=== PATIENT | female | born 1975 | race Caucasian/White ===

== ENCOUNTER 2018-04-13 11:23 | Outpatient (CLI) | payer OTHER ==
[~2018-04-13 11:23] MED LIST: BUPR150T6 PO; CITA-278 PO; ESZO2TAB22 PO; HYDR-569 PO; IBUP-1986 PO; LUBI24CA5 PO; METH-360 PO; NITR100C6 PO; ONDA8TAB9 PO
[2018-04-16 12:13] LABS: HBSAG SCREEN Negative (Negative); HEP A AB, IGM Negative (Negative); HEP B CORE AB, IGM Negative (Negative); HEPATITIS C ANTIBODY >11.0 s/co ratio (0.0-0.9); RPR Non Reactive (Non Reactive)
== END 2018-04-13 23:59 | disposition home or self-care (01) ==
LOC: LAB 11:23
PROVIDERS: ATTEND Family Medicine
DX: Z20.2 Contact with and (suspected) exposure to infections with a predominantly sexual mode of transmission (principal); F17.200 Nicotine dependence, unspecified, uncomplicated; Z98.51 Tubal ligation status
CPT/HCPCS: 36415; 80074; 86592; 87491

== ENCOUNTER 2018-08-09 13:34 | Emergency (ER) | payer OTHER ==
[~2018-08-09] VITALS: Ht 167.6 cm; Wt 64.2 kg
[~2018-08-09 13:34] MED LIST changes: +HYDR-4383 PO; -HYDR-569 PO
[2018-08-09 13:57] VITALS: BP 127/73
[2018-08-09] MEDS ORDERED: ketorolac tromethamine 15mg/ml inj. IM ONE (14:20)
== END 2018-08-09 15:45 | disposition home or self-care (01) ==
LOC: ER 13:34
DX: M54.5 Low back pain (principal); Z90.49 Acquired absence of other specified parts of digestive tract; Z98.51 Tubal ligation status; Z88.2 Allergy status to sulfonamides; Z88.5 Allergy status to narcotic agent; Z79.899 Other long term (current) drug therapy
CPT/HCPCS: 72100; 96372; 99284; J1885

== ENCOUNTER 2019-06-16 13:32 | Outpatient (CLI) | payer OTHER ==
[~2019-06-16 13:32] MED LIST changes: -CITA-278 PO; +CITA20TA28 PO
== END 2019-06-16 23:59 | disposition home or self-care (01) ==
LOC: CARD DIAG 13:32
PROVIDERS: ATTEND Student in an Organized Health Care Education/Training Program
DX: I31.3 Pericardial effusion (noninflammatory) (principal); I34.0 Nonrheumatic mitral (valve) insufficiency; R00.1 Bradycardia, unspecified; Z87.891 Personal history of nicotine dependence
CPT/HCPCS: 93306

== ENCOUNTER 2019-10-15 13:44 | Emergency (ER) | payer OTHER ==
[~2019-10-15] VITALS: Ht 166.4 cm; Wt 59.0 kg
[2019-10-15 14:24] VITALS: BP 130/48
== END 2019-10-15 15:17 | disposition home or self-care (01) ==
LOC: ER 13:45
DX: S20.212A Contusion of left front wall of thorax, initial encounter (principal); F41.9 Anxiety disorder, unspecified; F32.9 Major depressive disorder, single episode, unspecified; Z90.49 Acquired absence of other specified parts of digestive tract; Z98.51 Tubal ligation status; Z88.5 Allergy status to narcotic agent; Z79.899 Other long term (current) drug therapy; W18.39XA Other fall on same level, initial encounter; Y93.89 Activity, other specified; Y92.89 Other specified places as the place of occurrence of the external cause; Y99.8 Other external cause status
CPT/HCPCS: 71101; 99284

== ENCOUNTER 2020-12-18 09:08 | Emergency (ER) | payer BC, OTHER ==
[~2020-12-18] VITALS: Ht 167.6 cm; Wt 58.2 kg
[~2020-12-18 09:08] MED LIST changes: +BUPR-317 PO; -BUPR150T6 PO
[2020-12-18 09:19] VITALS: BP 109/52
[2020-12-18] MEDS ORDERED: proparacaine 0.5% ophthalmic drops 15ml RIGHTEYE ONE (09:35)
[2020-12-18] MEDS ORDERED: OFLO5DRO3 RIGHTEYE (10:05)
== END 2020-12-18 10:27 | disposition home or self-care (01) ==
LOC: EEVIPCON 09:08 → ER 09:08
DX: S05.01XA Injury of conjunctiva and corneal abrasion without foreign body, right eye, initial encounter (principal); Z88.5 Allergy status to narcotic agent; Z79.899 Other long term (current) drug therapy; X58.XXXA Exposure to other specified factors, initial encounter; Y93.89 Activity, other specified; Y92.89 Other specified places as the place of occurrence of the external cause; Y99.8 Other external cause status
CPT/HCPCS: 99283

== ENCOUNTER 2020-12-27 16:40 | Emergency (ER) | payer BC ==
[~2020-12-27] VITALS: Ht 165.1 cm; Wt 59.1 kg
[~2020-12-27 16:40] MED LIST changes: +OFLO5DRO3 RIGHTEYE
[2020-12-27 17:22] LABS: BASOPHILS # (AUTO) 0.1 X10'3 (0-0.2); BASOPHILS % (AUTO) 1.4 % (0-1); EOSINOPHILS % (AUTO) 0.2 % (0-6); HEMATOCRIT 45.4 % (35.0-45.0); HEMOGLOBIN 15.4 g/dl (12.0-16.0); LYMPHOCYTES % (AUTO) 23.1 % (21-51); MEAN CORPUSCULAR HEMOGLOBIN 32.9 PG (27.0-31.0); MEAN CORPUSCULAR HGB CONC 33.8 g/dL (33.0-36.5); MEAN CORPUSCULAR VOLUME 97.2 FL (78-98); MEAN PLATELET VOLUME 9.8 FL (7.4-10.4); MONOCYTES # (AUTO) 0.7 X10'3 (0-0.9); MONOCYTES % (AUTO) 8.2 % (2-12); NEUTROPHILS # (AUTO) 5.7 X10'3 (1.8-7.7); NEUTROPHILS % (AUTO) 67.1 % (42-75); PLATELET COUNT 245 X10'3 (140-440); RED BLOOD COUNT 4.67 X10'6 (4.20-5.60); RED CELL DISTRIBUTION WIDTH 13.2 % (11.5-14.5); WHITE BLOOD COUNT 8.6 X10'3 (4.5-11.0)
[2020-12-27 17:31] LABS: ALANINE AMINOTRANSFERASE 24 U/L (12-78); ALBUMIN 4.3 G/DL (3.4-5.0); ALBUMIN/GLOBULIN RATIO 1.1 (1.1-1.5); ALKALINE PHOSPHATASE 51 IU/L (46-116); ANION GAP 8 (8-16); ASPARTATE AMINO TRANSFERASE 26 U/L (10-37); BILIRUBIN,TOTAL 0.6 MG/DL (0.1-1.0); BLOOD UREA NITROGEN 12 MG/DL (7-18); CALCIUM 9.8 MG/DL (8.5-10.1); CHLORIDE 100 MMOL/L (99-107); CREATININE 0.86 MG/DL (0.40-0.90); GLUCOSE 95 MG/DL (70-104); POTASSIUM 3.5 MMOL/L (3.5-5.1); SODIUM 138 MMOL/L (135-145); TOTAL CARBON DIOXIDE 30.4 MMOL/L (24-32); TOTAL PROTEIN 8.2 G/DL (6.4-8.2); eGFR 72 ML/MIN
[2020-12-27] MEDS ORDERED: normal saline 1000ML IV soln IVB ONE (18:35)
[2020-12-27 18:49] LABS: CLARITY,URINE CLEAR (Clear); COLOR,URINE STRAW (Yellow); GLUCOSE, URINE NEGATIVE (Neg); KETONES,URINE NEGATIVE (Neg); LEUKOCYTE ESTERASE ,URINE NEGATIVE (Neg); NITRITES, URINE NEGATIVE (Neg); OCCULT BLOOD,URINE NEGATIVE (Neg); PH,URINE 6.5 (4.8-8.0); PROTEIN,URINE NEGATIVE (Neg); UA COLLECTION TYPE CLN CATCH MIDSTREAM; UROBILINOGEN,URINE 0.2 E.U/dL (0.2-1.0)
[2020-12-27 18:50] LABS: URINE HCG NEGATIVE (NEG)
[2020-12-27 20:42] VITALS: BP 120/79
== END 2020-12-27 20:46 | disposition home or self-care (01) ==
LOC: ER 16:41
DX: R42 Dizziness and giddiness (principal); R55 Syncope and collapse; R06.02 Shortness of breath; E86.0 Dehydration; F41.9 Anxiety disorder, unspecified; F32.9 Major depressive disorder, single episode, unspecified; Z90.49 Acquired absence of other specified parts of digestive tract; Z98.51 Tubal ligation status; Z79.2 Long term (current) use of antibiotics; Z79.899 Other long term (current) drug therapy
CPT/HCPCS: 36415; 71045; 80053; 81003; 81025; 83880; 84484; 85025; 93005; 96360; 96361; 99285; J7030

== ENCOUNTER 2021-02-16 17:17 | Emergency (ER) | payer BC ==
[~2021-02-16] VITALS: Ht 165.1 cm; Wt 60.1 kg
[2021-02-16] MEDS ORDERED: LORazepam 0.5 MG tablet PO PRN (19:05)
[2021-02-16] MEDS ORDERED: normal saline 1000ML IV soln IVB ONE ×2 (19:05→20:35)
[2021-02-16 19:09] LABS: BASOPHILS # (AUTO) 0.1 X10'3 (0-0.2); BASOPHILS % (AUTO) 1.5 % (0-1); EOSINOPHILS % (AUTO) 0.1 % (0-6); HEMATOCRIT 42.1 % (35.0-45.0); HEMOGLOBIN 14.5 g/dl (12.0-16.0); LYMPHOCYTES # (AUTO) 1.1 X10'3 (1.1-4.8); LYMPHOCYTES % (AUTO) 13.9 % (21-51); MEAN CORPUSCULAR HEMOGLOBIN 32.7 PG (27.0-31.0); MEAN CORPUSCULAR HGB CONC 34.5 g/dL (33.0-36.5); MEAN CORPUSCULAR VOLUME 94.8 FL (78-98); MEAN PLATELET VOLUME 9.6 FL (7.4-10.4); MONOCYTES % (AUTO) 12.1 % (2-12); NEUTROPHILS # (AUTO) 5.9 X10'3 (1.8-7.7); NEUTROPHILS % (AUTO) 72.4 % (42-75); PLATELET COUNT 229 X10'3 (140-440); RED BLOOD COUNT 4.44 X10'6 (4.20-5.60); RED CELL DISTRIBUTION WIDTH 12.8 % (11.5-14.5); WHITE BLOOD COUNT 8.1 X10'3 (4.5-11.0)
[2021-02-16 19:18] LABS: PARTIAL THROMBOPLASTIN TIME 26 SECONDS (22-32)
[2021-02-16 19:20] LABS: ALANINE AMINOTRANSFERASE 55 U/L (12-78); ALBUMIN 3.8 G/DL (3.4-5.0); ALBUMIN/GLOBULIN RATIO 1.1 (1.1-1.5); ALKALINE PHOSPHATASE 40 IU/L (46-116); ANION GAP 9 (8-16); ASPARTATE AMINO TRANSFERASE 62 U/L (10-37); BILIRUBIN,TOTAL 0.7 MG/DL (0.1-1.0); BLOOD UREA NITROGEN 8 MG/DL (7-18); BUN/CREATININE RATIO 9.9 (6.6-38.0); CALCIUM 8.7 MG/DL (8.5-10.1); CHLORIDE 98 MMOL/L (99-107); CREATININE 0.81 MG/DL (0.40-0.90); GLUCOSE 150 MG/DL (70-104); POTASSIUM 3.4 MMOL/L (3.5-5.1); SODIUM 134 MMOL/L (135-145); TOTAL CARBON DIOXIDE 26.9 MMOL/L (24-32); TOTAL PROTEIN 7.3 G/DL (6.4-8.2); eGFR 77 ML/MIN
[2021-02-16 19:28] LABS: LIPASE 166 U/L (73-393); TROPONIN I < 0.04 NG/ML (0.0-0.05)
--- NOTE | 2021-02-16 20:06 | NUR ---
PT AMBULATORY TO BATHROOM WITH STEADY GAIT.
[2021-02-16 21:54] VITALS: BP 111/60
== END 2021-02-16 22:39 | disposition home or self-care (01) ==
LOC: EEVIPCON 17:18 → ER 17:18
DX: R42 Dizziness and giddiness (principal); E86.0 Dehydration; R06.02 Shortness of breath; R07.89 Other chest pain; F41.9 Anxiety disorder, unspecified; F32.9 Major depressive disorder, single episode, unspecified; F17.200 Nicotine dependence, unspecified, uncomplicated; Z90.49 Acquired absence of other specified parts of digestive tract; Z98.51 Tubal ligation status; Z79.2 Long term (current) use of antibiotics; Z79.899 Other long term (current) drug therapy
CPT/HCPCS: 36415; 71045; 80053; 83690; 83880; 84484; 85025; 85610; 85730; 93005; 96360; 96361; 99285; J7030

== ENCOUNTER → 2021-02-26 | Emergency (ER) | payer BC, OTHER ==
[~2021-02-26] VITALS: Ht 167.6 cm; Wt 56.0 kg
[2021-02-26 19:02] VITALS: BP 135/78
== END | disposition home or self-care (01) ==
LOC: ER 18:58
DX: M25.512 Pain in left shoulder (principal); M25.552 Pain in left hip; M54.2 Cervicalgia; F41.9 Anxiety disorder, unspecified; F32.9 Major depressive disorder, single episode, unspecified; Z90.49 Acquired absence of other specified parts of digestive tract; Z98.51 Tubal ligation status; Z79.2 Long term (current) use of antibiotics; Z79.899 Other long term (current) drug therapy; W01.0XXA Fall on same level from slipping, tripping and stumbling without subsequent striking against object, initial encounter; Y93.89 Activity, other specified; Y92.89 Other specified places as the place of occurrence of the external cause; Y99.8 Other external cause status
CPT/HCPCS: 72050; 73030; 73502; 99284

== ENCOUNTER 2021-04-09 12:50 | Outpatient (CLI) | payer BC | END 2021-04-09 23:59 | disposition home or self-care (01) | LOC: LAB 12:50 | PROVIDERS: ATTEND Family Medicine | DX: Z86.19 Personal history of other infectious and parasitic diseases (principal) | CPT/HCPCS: 36415; 82103 ==

== ENCOUNTER 2021-05-30 14:01 | Emergency (ER) | payer BC, OTHER ==
[~2021-05-30] VITALS: Ht 170.2 cm; Wt 61.4 kg
[2021-05-30] MEDS ORDERED: HYDROcodone/acetaminophen 5mg/325mg tablet PO ONE (16:50)
[2021-05-30] MEDS ORDERED: ondansetron 4mg rapidly disintigrating tab PO ONE (16:50)
[2021-05-30] MEDS ORDERED: dexamethasone 4mg tablet PO ONE (17:20)
[2021-05-30 18:44] VITALS: BP 106/48
[2021-05-30 19:21] LABS: BASOPHILS # (AUTO) 0.1 X10'3 (0-0.2); BASOPHILS % (AUTO) 1.2 % (0-1); EOSINOPHILS # (AUTO) 0.6 X10'3 (0-0.9); EOSINOPHILS % (AUTO) 5.3 % (0-6); HEMATOCRIT 44.1 % (35.0-45.0); HEMOGLOBIN 15.3 g/dl (12.0-16.0); LYMPHOCYTES # (AUTO) 1.3 X10'3 (1.1-4.8); LYMPHOCYTES % (AUTO) 12.3 % (21-51); MEAN CORPUSCULAR HEMOGLOBIN 33.3 PG (27.0-31.0); MEAN CORPUSCULAR HGB CONC 34.6 g/dL (33.0-36.5); MEAN CORPUSCULAR VOLUME 96.3 FL (78-98); MEAN PLATELET VOLUME 9.5 FL (7.4-10.4); MONOCYTES # (AUTO) 0.9 X10'3 (0-0.9); MONOCYTES % (AUTO) 8.5 % (2-12); NEUTROPHILS # (AUTO) 7.7 X10'3 (1.8-7.7); NEUTROPHILS % (AUTO) 72.7 % (42-75); PLATELET COUNT 256 X10'3 (140-440); RED BLOOD COUNT 4.58 X10'6 (4.20-5.60); RED CELL DISTRIBUTION WIDTH 12.8 % (11.5-14.5); WHITE BLOOD COUNT 10.5 X10'3 (4.5-11.0)
[2021-05-30 19:35] LABS: ALANINE AMINOTRANSFERASE 25 U/L (12-78); ALBUMIN 3.7 G/DL (3.4-5.0); ALBUMIN/GLOBULIN RATIO 0.9 (1.1-1.5); ALKALINE PHOSPHATASE 54 IU/L (46-116); ANION GAP 8 (8-16); ASPARTATE AMINO TRANSFERASE 23 U/L (10-37); BILIRUBIN,TOTAL 0.7 MG/DL (0.1-1.0); BLOOD UREA NITROGEN 6 MG/DL (7-18); BUN/CREATININE RATIO 7.2 (6.6-38.0); CALCIUM 8.7 MG/DL (8.5-10.1); CHLORIDE 105 MMOL/L (99-107); CREATININE 0.83 MG/DL (0.40-0.90); GLUCOSE 137 MG/DL (70-104); POTASSIUM 3.9 MMOL/L (3.5-5.1); SODIUM 141 MMOL/L (135-145); TOTAL CARBON DIOXIDE 28.3 MMOL/L (24-32); TOTAL PROTEIN 7.8 G/DL (6.4-8.2); eGFR 75 ML/MIN
[2021-05-30] MEDS ORDERED: LORazepam 2 mg/ml vial IV ONE (19:35)
[2021-05-30] MEDS ORDERED: NORepinephrine inj. 32 MG in normal saline 250ml IV soln 218 ML IV SCH (19:40)
[2021-05-30] MEDS ORDERED: NORepinephrine 8mg/ 250ml NS 250 ML IV SCH (19:40)
[2021-05-30] MEDS ORDERED: ondansetron/PF 4mg/2ml inj IV ONE (23:35)
[2021-05-30] MEDS ORDERED: HYDROcodone/acetaminophen 10/325mg tab PO ONE (23:35)
== END 2021-05-31 06:32 | disposition short-term general hospital (02) ==
LOC: ER 14:03
DX: T14.8XXA Other injury of unspecified body region, initial encounter (principal); Z20.822 Contact with and (suspected) exposure to COVID-19; W18.39XA Other fall on same level, initial encounter; Y93.89 Activity, other specified; Y92.89 Other specified places as the place of occurrence of the external cause; Y99.8 Other external cause status
CPT/HCPCS: 36415; 36556; 70450; 70486; 72125; 72141; 72146; 72148; 80053; 85025; 87635; 96365; 96375; 99291; C9803; J2060; J2405

== ENCOUNTER 2021-07-18 11:47 | Emergency (ER) | payer BC ==
[~2021-07-18] VITALS: Ht 167.6 cm; Wt 60.9 kg
[2021-07-18 12:33] VITALS: BP 100/53
[2021-07-18 13:09] LABS: MONOCYTES # (AUTO) 0.6 X10'3 (0-0.9)
[2021-07-18 13:18] LABS: PARTIAL THROMBOPLASTIN TIME 27 SECONDS (22-32)
[2021-07-18 13:20] LABS: ALBUMIN 3.8 G/DL (3.4-5.0); ALBUMIN/GLOBULIN RATIO 1.1 (1.1-1.5); ALKALINE PHOSPHATASE 39 IU/L (46-116); ANION GAP 6 (8-16); ASPARTATE AMINO TRANSFERASE 18 U/L (10-37); BILIRUBIN,TOTAL 0.6 MG/DL (0.1-1.0); BLOOD UREA NITROGEN 7 MG/DL (7-18); BUN/CREATININE RATIO 9.5 (6.6-38.0); CALCIUM 9.2 MG/DL (8.5-10.1); CHLORIDE 104 MMOL/L (99-107); CREATININE 0.74 MG/DL (0.40-0.90); GLUCOSE 93 MG/DL (70-104); POTASSIUM 3.9 MMOL/L (3.5-5.1); SODIUM 138 MMOL/L (135-145); TOTAL PROTEIN 7.4 G/DL (6.4-8.2); eGFR 85 ML/MIN
[2021-07-18 13:30] LABS: NEUTROPHILS # (AUTO) 2.3 X10'3 (1.8-7.7); WHITE BLOOD COUNT 5.9 X10'3 (4.5-11.0)
[2021-07-18 13:32] LABS: BASOPHILS % (AUTO) 0.3 % (0-1); EOSINOPHILS # (AUTO) 0.7 X10'3 (0-0.9); EOSINOPHILS % (AUTO) 12.6 % (0-6); HEMATOCRIT 41.3 % (35.0-45.0); LYMPHOCYTES # (AUTO) 2.2 X10'3 (1.1-4.8); LYMPHOCYTES % (AUTO) 37.1 % (21-51); MEAN CORPUSCULAR HEMOGLOBIN 32.7 PG (27.0-31.0); MEAN CORPUSCULAR HGB CONC 33.8 g/dL (33.0-36.5); MEAN CORPUSCULAR VOLUME 96.7 FL (78-98); MEAN PLATELET VOLUME 10.6 FL (7.4-10.4); PLATELET COUNT 229 X10'3 (140-440); RED BLOOD COUNT 4.27 X10'6 (4.20-5.60); RED CELL DISTRIBUTION WIDTH 12.2 % (11.5-14.5)
[2021-07-18 13:36] LABS: ALANINE AMINOTRANSFERASE < 6 U/L (12-78)
== END 2021-07-18 14:31 | disposition home or self-care (01) ==
LOC: ER 11:47
DX: R21 Rash and other nonspecific skin eruption (principal); Z90.49 Acquired absence of other specified parts of digestive tract; Z98.51 Tubal ligation status; Z79.899 Other long term (current) drug therapy
CPT/HCPCS: 80053; 85025; 85610; 85730; 99283

== ENCOUNTER 2022-06-12 09:30 | Outpatient (CLI) | payer BC ==
[2022-06-12 10:13] LABS: BASOPHILS % (AUTO) 0.3 % (0-1); EOSINOPHILS # (AUTO) 0.2 X10'3 (0-0.9); EOSINOPHILS % (AUTO) 2.8 % (0-6); HEMATOCRIT 45.5 % (35.0-45.0); HEMOGLOBIN 15.5 g/dl (12.0-16.0); LYMPHOCYTES # (AUTO) 1.7 X10'3 (1.1-4.8); LYMPHOCYTES % (AUTO) 30.3 % (21-51); MEAN CORPUSCULAR HEMOGLOBIN 33.8 PG (27.0-31.0); MEAN CORPUSCULAR HGB CONC 34.1 g/dL (33.0-36.5); MEAN PLATELET VOLUME 9.3 FL (7.4-10.4); MONOCYTES # (AUTO) 0.9 X10'3 (0-0.9); MONOCYTES % (AUTO) 15.8 % (2-12); NEUTROPHILS # (AUTO) 2.9 X10'3 (1.8-7.7); NEUTROPHILS % (AUTO) 50.8 % (42-75); PLATELET COUNT 226 X10'3 (140-440); RED BLOOD COUNT 4.59 X10'6 (4.20-5.60); RED CELL DISTRIBUTION WIDTH 13.6 % (11.5-14.5); WHITE BLOOD COUNT 5.7 X10'3 (4.5-11.0)
[2022-06-12 10:37] LABS: ALANINE AMINOTRANSFERASE 50 U/L (12-78); ALBUMIN 3.6 G/DL (3.4-5.0); ALBUMIN/GLOBULIN RATIO 0.9 (1.1-1.5); ALKALINE PHOSPHATASE 70 IU/L (46-116); ANION GAP 10 (8-16); ASPARTATE AMINO TRANSFERASE 50 U/L (10-37); BILIRUBIN,TOTAL 0.6 MG/DL (0.1-1.0); BLOOD UREA NITROGEN 9 MG/DL (7-18); BUN/CREATININE RATIO 9.9 (6.6-38.0); CALCIUM 9.5 MG/DL (8.5-10.1); CHLORIDE 98 MMOL/L (99-107); CREATININE 0.91 MG/DL (0.40-0.90); GLUCOSE 125 MG/DL (70-104); POTASSIUM 3.9 MMOL/L (3.5-5.1); SODIUM 138 MMOL/L (135-145); TOTAL CARBON DIOXIDE 29.6 MMOL/L (24-32); TOTAL PROTEIN 7.5 G/DL (6.4-8.2); eGFR 67 ML/MIN
[2022-06-13 09:45] LABS: ESTRADIOL 35.8 pg/mL (.); FSH, SERUM 75.4 mIU/mL (.); LUTEINIZING HORMONE 60.6 mIU/mL (.); PROGESTERONE 0.2 ng/mL (.); THYROXINE (T4) 5.3 ug/dL (4.5-12.0)
== END 2022-06-12 23:59 | disposition home or self-care (01) ==
LOC: LAB 09:30
PROVIDERS: ATTEND Physician Assistant Medical
DX: Z30.018 Encounter for initial prescription of other contraceptives (principal); N91.2 Amenorrhea, unspecified
CPT/HCPCS: 80053; 82306; 82670; 82679; 83001; 83002; 84144; 84436; 84443; 84480; 85025

== ENCOUNTER 2022-06-15 10:27 | Outpatient (CLI) | payer BC ==
[2022-06-16 13:12] LABS: HEPATITIS C ANTIBODY >11.0 s/co ratio (0.0-0.9)
== END 2022-06-15 23:59 | disposition home or self-care (01) ==
LOC: RAD 10:27 → EEVIPCON 10:30 → RAD 23:59
PROVIDERS: ATTEND Physician Assistant Medical
DX: N85.8 Other specified noninflammatory disorders of uterus (principal); N83.291 Other ovarian cyst, right side; Z86.19 Personal history of other infectious and parasitic diseases
CPT/HCPCS: 36415; 76830; 76856; 86803; 87522; 93976

== ENCOUNTER 2023-09-28 12:54 | Emergency (ER) | payer BC ==
[~2023-09-28] VITALS: Ht 167.6 cm; Wt 56.4 kg
[~2023-09-28 12:54] MED LIST changes: -OFLO5DRO3 RIGHTEYE; +OFLO5DRO6 RIGHTEYE
[2023-09-28 13:11] VITALS: BP 110/67; PULSE 105; RESP 18; O2SAT 98
[2023-09-28] MEDS ORDERED: AZIT250T82 PO (14:03)
[2023-09-28] MEDS ORDERED: ALBU8HFA INH (14:03)
[2023-09-28 14:04] VITALS: TEMP 97.6
== END 2023-09-28 14:12 | disposition home or self-care (01) ==
LOC: ER 12:55
DX: J20.9 Acute bronchitis, unspecified (principal); F17.200 Nicotine dependence, unspecified, uncomplicated; F41.8 Other specified anxiety disorders; Z90.49 Acquired absence of other specified parts of digestive tract; Z79.899 Other long term (current) drug therapy; Z79.2 Long term (current) use of antibiotics
CPT/HCPCS: 99283

== ENCOUNTER 2024-11-09 16:32 | Emergency (ER) | payer BC ==
[~2024-11-09] VITALS: Ht 170.2 cm; Wt 59.1 kg
[~2024-11-09 16:32] MED LIST changes: -BUPR-317 PO; +BUPR-726 PO; +CITA-178 PO; -CITA20TA28 PO
[2024-11-09 16:43] VITALS: BP 119/79; PULSE 89; RESP 18; TEMP 97.9; O2SAT 100
[2024-11-09] MEDS ORDERED: PERM60CR27 TOP (16:48)
== END 2024-11-09 16:58 | disposition home or self-care (01) ==
LOC: ER 16:33
DX: B85.0 Pediculosis due to Pediculus humanus capitis (principal); F41.9 Anxiety disorder, unspecified; F32.A Depression, unspecified; F17.210 Nicotine dependence, cigarettes, uncomplicated; Z90.49 Acquired absence of other specified parts of digestive tract; Z98.51 Tubal ligation status; Z79.1 Long term (current) use of non-steroidal anti-inflammatories (NSAID); Z79.899 Other long term (current) drug therapy
CPT/HCPCS: 99282; 99283

== ENCOUNTER 2024-12-25 08:50 | Outpatient (CLI) | payer BC ==
[2024-12-25 09:27] LABS: BASOPHILS # (AUTO) 0.1 X10'3 (0-0.2); BASOPHILS % (AUTO) 2.4 % (0-1); EOSINOPHILS # (AUTO) 0.1 X10'3 (0-0.9); EOSINOPHILS % (AUTO) 2.5 % (0-6); HEMOGLOBIN 14.5 g/dl (12.0-16.0); LYMPHOCYTES # (AUTO) 2.3 X10'3 (1.1-4.8); LYMPHOCYTES % (AUTO) 40.9 % (21-51); MEAN CORPUSCULAR HEMOGLOBIN 31.5 PG (27.0-31.0); MEAN CORPUSCULAR HGB CONC 33.8 g/dL (33.0-36.5); MEAN CORPUSCULAR VOLUME 93.2 FL (78-98); MEAN PLATELET VOLUME 9.7 FL (7.4-10.4); MONOCYTES # (AUTO) 0.7 X10'3 (0-0.9); MONOCYTES % (AUTO) 11.9 % (2-12); NEUTROPHILS # (AUTO) 2.4 X10'3 (1.8-7.7); NEUTROPHILS % (AUTO) 42.3 % (42-75); PLATELET COUNT 236 X10'3 (140-440); RED BLOOD COUNT 4.61 X10'6 (4.20-5.60); RED CELL DISTRIBUTION WIDTH 12.4 % (11.5-14.5); WHITE BLOOD COUNT 5.6 X10'3 (4.5-11.0)
[2024-12-25 09:55] LABS: ALANINE AMINOTRANSFERASE 15 U/L (12-78); ALBUMIN 3.8 G/DL (3.4-5.0); ALKALINE PHOSPHATASE 65 IU/L (46-116); ANION GAP 7 (8-16); ASPARTATE AMINO TRANSFERASE 15 U/L (10-37); BILIRUBIN,TOTAL 0.7 MG/DL (0.1-1.0); BLOOD UREA NITROGEN 9 MG/DL (7-18); BUN/CREATININE RATIO 12.2 (10.0-20.0); CALCIUM 9.5 MG/DL (8.5-10.1); CHLORIDE 104 MMOL/L (99-107); CHOL/HDL RATIO 3.7 (0.00-4.99); CHOLESTEROL 257 MG/DL (0-200); CREATININE 0.74 MG/DL (0.40-0.90); FERRITIN 141 NG/ML (8-252); FREE T4 (FREE THYROXINE) 0.92 NG/DL (0.73-1.40); GLUCOSE 90 MG/DL (70-104); HDL CHOLESTEROL 70 MG/DL (35-60); LDL CHOLESTEROL 152 MG/DL (50-100); POTASSIUM 3.9 MMOL/L (3.5-5.1); SODIUM 139 MMOL/L (135-145); THYROID STIMULATING HORMONE 1.32 ulU/ml (0.34-4.50); TOTAL CARBON DIOXIDE 28.2 MMOL/L (24-32); TOTAL PROTEIN 7.5 G/DL (6.4-8.2); TRIGLYCERIDES 95 MG/DL (20-135); eGFR 84 ML/MIN
--- NOTE | 2024-12-25 12:14 | RADIOLOGY REPORT ---
INDICATION: RIGHT OVARY CYST,HX UTERINE FIBROID,FHX LIVER CANC TECHNIQUE: Multiple real-time sonographic images of the abdomen were obtained. COMPARISON: None FINDINGS: The liver is homogenous in echogenicity. The liver measures 14cm. No intrahepatic biliary ductal dilatation is noted. Gallbladder is surgically absent. The common duct measures 0.4 cm and is unremarkable. No perichole cystic fluid is noted. The right kidney measures 11 cm. No hydronephrosis. Right renal cyst measuring 1.6 cm. The left kidn ey measures 11cm. No hydronephrosis. Spleen is not well visualized due to obscuration from bowel gas. The pancreas is not well visualized due to obscuration from bowel gas. The visualized portions of the IVC and aorta are grossly unremarkable. IMPRESSION: Status post cholecystectomy. Right renal cyst measuring 2.1 cm.
--- NOTE | 2024-12-25 13:01 | RADIOLOGY REPORT ---
INDICATION: RIGHT OVARY CYST,HX UTERINE FIBROID,FHX LIVER CANC TECHNIQUE: Multiple real-time grayscale transabdominal and transvaginal sonographic images along with color and duplex Doppler of the uterus and ovaries were obtained. COMPARISON: None FINDINGS: The uterus measures 6.4 x 3.2 x 3.9 cm. Heterogeneous uterus. The endometrial stripe measur es 0.2 cm. The right ovary measures 6.5 x 6.1 x 4.7 cm. There is a right ovarian cyst measuring 6.8 cm. The left ovary measures 1.8 x 1.9 x 1.9 cm. Subsequent color and duplex Doppler interrogation of the ovaries demonstrated symmetric vascular flow to both ovaries, though this does not exclude the possibility of torsion due to the dual blood suppl y. IMPRESSION: Heterogeneous uterus. Right ovarian cyst measuring 6.8 cm. Recommend follow-up pelvic ultrasound in 1 year.
== END 2024-12-25 23:59 | disposition home or self-care (01) ==
LOC: RAD 08:50
PROVIDERS: ATTEND Family Medicine
DX: D25.1 Intramural leiomyoma of uterus (principal); Z86.19 Personal history of other infectious and parasitic diseases; N83.201 Unspecified ovarian cyst, right side; Z86.018 Personal history of other benign neoplasm; Z80.0 Family history of malignant neoplasm of digestive organs; Z90.49 Acquired absence of other specified parts of digestive tract; R10.9 Unspecified abdominal pain; R79.89 Other specified abnormal findings of blood chemistry
CPT/HCPCS: 36415; 76700; 76830; 76856; 80053; 80061; 82103; 82728; 84439; 84443; 85025; 93976

== ENCOUNTER 2025-01-23 11:24 | Outpatient (CLI) | payer BC ==
--- NOTE | 2025-01-23 17:02 | RADIOLOGY REPORT ---
PROCEDURE: MR MRI LUMBAR SPINE INDICATION: LOW BACK PAIN, UNSPECIFIED Exam Date: 01/23/2025 11:25 AM COMPARISON: MRI LUMBAR SPINE on DOS: 05/30/21 TECHNIQUE: MRI lumbar spine without intravenous contrast. FINDINGS: Dextroscoliosis. Grade 1 retrolisthesis of L5 on S1. There are degenerative endplate changes includ ing modic endplate changes with anterior and lateral osteophytes throughout the lumbar spine. The vis ualized distal spinal cord and conus medullaris are within normal limits. The conus medullaris appea rs to terminate within normal limits. The visualized retroperitoneal and paraspinal soft tissues are unremarkable. Cystic lesion in the right pelvis measuring up to 66 mm partially imaged. The following axial levels are detailed below: T12-L1: Unremarkable. L1-L2: Unremarkable. L2-L3: Unremarkable. L3-L4: There is a moderate circumferential disc bulge complicated by facet arthropathy associated w ith mild to moderate right neuroforaminal stenosis. No significant central canal stenosis. L4-L5: There is a moderate circumferential disc bulge complicated by facet arthropathy associated w ith mild to moderate bilateral neuroforaminal stenosis. No significant central canal stenosis. L5-S1: There is a moderate circumferential disc bulge complicated by facet arthropathy associated wi th mild to moderate bilateral neuroforaminal stenosis. No significant central canal stenosis. IMPRESSION: 1. Rotoscoliosis of the lower lumbar spine with associated multilevel degenerative disease. No signi ficant central canal stenosis. Neural foraminal stenosis as above. 2. Cystic lesion in the right pelvis partially imaged could represent an ovarian cyst. This can be fu rther evaluated with pelvic ultrasound and/or MRI of the pelvis with contrast. HS:Y
--- NOTE | 2025-01-23 19:18 | RADIOLOGY REPORT ---
EXAM: MR MRI PELVIS INDICATION: BACK PAIN, SCOLIOSIS TECHNIQUE: Multiplanar, multisequence imaging of the pelvis without contrast COMPARISON: ULTRASOUND PELVIS on DOS: 06/15/22 FINDINGS: [BONES]: No fracture, osseous contusion, avascular necrosis of the hips, or aggressive osseous lesion . Degenerative change centered at L5-S1 with a opposing Modic type 1 endplate degenerative change, wh ich may be symptomatic. Circumferential disc bulge at L5-S1 with trace posterior extension. Mild-to-m oderate bilateral foraminal narrowing at L4-5 and L5-S1. Dominant dextroscoliotic lumbar spine [MUSCLES]: Muscles of the pelvis are normal in bulk and morphology. [TENDONS]: Hamstring tendon origins at the ischial tuberosities are normal. [JOINT SPACES]: No hip joint effusion [NEUROVASCULAR]: Visualized sciatic nerves are normal without evidence of a subjacent mass lesion or abnormal intrinsic T2 hyperintensity. The visualized sacral nerve roots are normal with normal appear ing surround fat planes without an adjacent mass lesion. [OTHER]: There is no trochanteric or iliopsoas bursal collection. Intraperitoneal cavity is unremarka ble. Partially visualized lumbosacral spine is unremarkable. IMPRESSION: 1. Normal course of the proximal sciatic nerves. No muscle denervation. Symmetric appearance of the sacroiliac joints. 2. Modic type 1 endplate degenerative change centered at L5-S1 with the associated neural foraminal n arrowing at L4-5 and L5-S1
== END 2025-01-23 23:59 | disposition home or self-care (01) ==
LOC: MRI02 11:24
PROVIDERS: ATTEND Nurse Practitioner
DX: M47.817 Spondylosis without myelopathy or radiculopathy, lumbosacral region (principal); M54.9 Dorsalgia, unspecified; M54.50 Low back pain, unspecified; M41.9 Scoliosis, unspecified; M48.02 Spinal stenosis, cervical region
CPT/HCPCS: 72148; 72195

== ENCOUNTER 2025-05-04 07:50 | Day surgery (SDC) | payer BC ==
[2025-04-23 12:16] LABS: PRE OP WHITE BLOOD COUNT 4.0 10'3 (4.8-10.8)
[2025-04-23 12:18] LABS: MEAN PLATELET VOLUME 9.3 FL (7.4-10.4); PRE OP HEMATOCRIT 40.3 % (35.0-45.0); PRE OP HEMOGLOBIN 13.6 g/dL (12.0-16.0); PRE OP PLATELET COUNT 204 X10'3 (140-440); RED CELL DISTRIBUTION WIDTH 14.4 % (11.5-14.5)
[2025-04-23 12:29] LABS: CREATININE 0.59 MG/DL (0.40-0.90); PRE OP ALT 34 U/L (30-65); PRE OP ANION GAP 10 (8-16); PRE OP AST 40 U/L (10-37); PRE OP BILIRUB, TOTAL 0.5 MG/DL (0.0-1.0); PRE OP GLUCOSE 85 MG/DL (70-104); PRE OP POTASSIUM 4.0 MMOL/L (3.4-5.1); PRE OP SODIUM 140 MMOL/L (135-145); TOTAL CARBON DIOXIDE 26.4 MMOL/L (24-32); eGFR > 90 ML/MIN
[~2025-05-04] VITALS: Ht 167.6 cm; Wt 56.8 kg
[2025-05-04] VITALS (11 sets, daily range): BP systolic 114–132; BP diastolic 69–78; PULSE 78–100; RESP 12–17; TEMP 98.7; O2SAT 95–100
[~2025-05-04 07:50] MED LIST changes: +BIOTIN PO; +BUPR-559 PO; -BUPR-726 PO; -CITA-178 PO; -ESZO2TAB22 PO; -HYDR-4383 PO; -IBUP-1986 PO; -LUBI24CA5 PO; +MELATONIN PO; -METH-360 PO; +MILK THISTLE PO; -NITR100C6 PO; -OFLO5DRO6 RIGHTEYE; -ONDA8TAB9 PO; +SLEEP AID PO; +ceFAZolin 2gm/dext,iso 50mL 50 ML IV ONE; +ceFOXitin 2GM-NS 100mL ADDvant 100 ML IV ONE
[2025-05-04] MEDS ORDERED: BUPIVAcaine 0.25% w/Epi /PF 30ml vial ONE (09:40)
[2025-05-04] MEDS: ondansetron/PF 4mg/2ml inj ONE (09:50)
[2025-05-04] MEDS: aprepitant 40mg capsule PO ONE (09:50)
[2025-05-04] MEDS: ringers solution, lacted 1,000 ML IV SCH (09:52)
[2025-05-04] MEDS ORDERED: hydrALAZINE 20mg/ml inj. IV PRN (10:05)
[2025-05-04] MEDS ORDERED: labetalol 20mg/4ml (5mg/ml) syringe IV PRN (10:05)
[2025-05-04] MEDS ORDERED: ringers solution, lacted 1,000 ML IV SCH (10:05)
[2025-05-04] MEDS ORDERED: HYDROmorphone/PF 0.2 MG/ML SYRINGE IV PRN ×2 (10:05)
[2025-05-04] MEDS ORDERED: morphine 4 MG/ML inj SYRINge IV PRN ×2 (10:05→11:21)
[2025-05-04] MEDS ORDERED: ondansetron/PF 4mg/2ml inj IV PRN (10:05)
[2025-05-04] MEDS ORDERED: midazolam 1 mg/ML 2ml injection ONE (10:08)
[2025-05-04] MEDS ORDERED: fentaNYL /PF 50mcg/ml 5ml ampule ONE (10:18)
[2025-05-04] MEDS: BUPIVAcaine 0.25% w/Epi /PF 30ml vial IJ ONE (10:40)
[2025-05-04] MEDS ORDERED: LIDOcaine 2% (20mg/ml) 5ml vial ONE (11:09)
[2025-05-04] MEDS ORDERED: dexamethasone sod phosphate 4mg/ml inj. ONE (11:09)
[2025-05-04] MEDS ORDERED: propofol inj 20 ML IV ONE (11:09)
[2025-05-04] MEDS ORDERED: glycopyrrolate 0.2mg/ml inj ONE (11:09)
[2025-05-04] MEDS ORDERED: ondansetron/PF 4mg/2ml inj ONE (11:09)
[2025-05-04] MEDS ORDERED: rocuronium 10mg/ml inj IV ONE (11:09)
[2025-05-04] MEDS: acetaminophen 1,000mg/100ml IV 100 ML IV PRN (12:23)
[2025-05-04] MEDS: oxyCODONE/APAP 5-325mg tablet PO ONE (12:24)
--- NOTE | 2025-05-04 13:23 | OPERATIVE REPORT ---
DATE OF SURGERY: 05/04/2025 DICTATING PHYSICIAN: Reji Zapata MD PREOPERATIVE DIAGNOSIS: Right ovarian cyst. POSTOPERATIVE DIAGNOSIS: Right ovarian cyst. PROCEDURE: Laparoscopic removal of right tube and ovary. SURGEON: Reji Zapata MD EVENTS DIRECTOR: None. ANESTHESIOLOGIST: Dr. Castaneda. ANESTHESIA: General anesthetic. PRINCIPAL FINDINGS: Approximately 7 cm right ovarian cyst, normal-appearing left ovary. COMPLICATIONS: None. ESTIMATED BLOOD LOSS: Minimal. MEDICATION: IV antibiotic preoperatively. SPECIMENS: Right tube and ovary. DESCRIPTION OF PROCEDURE: General anesthesia was found to be adequate. The patient was placed in low lithotomy. Transurethral Red Efra urinary catheter was placed and an acorn uterine manipulator placed. A Naomi cannula placement was performed at the umbilicus. All skin incisions were preanesthetized with 0.25% Marcaine with epinephrine prior to skin incision. A 10 mm umbilical skin incision was then made and carried down to the underlying fascia, which was grasped with Gema clamps and elevated. The fascia was incised. The peritoneum entered bluntly. Stay sutures of 0 Vicryl were placed in the fascia. A Naomi cannula was placed and the abdomen was insufflated with carbon dioxide gas. Upper abdomen and liver edge were visualized and normal. The patient was placed in Trendelenburg. Two further trocars, one in the right lower quadrant and one suprapubically, were placed under direct visualization without complication. The abdominal contents were moved out of the pelvis. Peritoneal surfaces in the pelvis were visualized and normal. The left tube and ovary were visualized and normal. The right ovary was enlarged with the cyst and freely mobile against the pelvic sidewall. A 5 mm LigaSure device was then used to electrocoagulate and transect the infundibulopelvic ligament. Dissection was carried down through the proximal fallopian tube and utero-ovarian ligament, which were electrocoagulated and transected. This then freed the specimen. It was intact and placed within an Endobag that was placed through the umbilical port. The Endobag was then brought to the anterior abdominal wall. The cyst was ruptured within the bag and deflated. There was no spillage of cyst fluid within the peritoneal cavity. The specimen was removed. The laparoscope was reintroduced. All pedicles and dissection planes were reinspected and found to be hemostatic. The umbilical fascial incision was reinforced with two further simple stitches of 0 Vicryl. Subcutaneous tissue was reapproximated with a simple stitch of 3-0 Vicryl. Skin was closed subcuticularly with 3-0 Vicryl. Skin edges were all sealed with skin glue. General anesthesia was reversed. The patient was taken out of lithotomy and she was transferred to the recovery room in stable condition. Reji Zapata MD TID: [id number] RECEIPT: [id number] /[facility] [place]
--- NOTE | 2025-05-05 14:15 | PATHOLOGY REPORT ---
[facility] [address] [place] [address] SURGICAL PATHOLOGY REPORT CaseNumber: [id number] Surgeon:Reji Banks M.D. CLINICAL INFORMATION CLINICAL INFORMATION: Not provided. DIAGNOSIS DIAGNOSIS: OVARY AND OVIDUCT, RIGHT SIDE, LAPAROSCOPIC SALP - BENIGN SEROUS CYST (4.5 CM) MICROSCOPIC DESCRIPTION MICROSCOPIC DESCRIPTION: Reviewed are four H&E-stain slides. As grossly described, the ovary is disrupted by a simple cyst lined by flattened cuboidal epithelial cells. No papillary or borderline features or other dysplastic or neoplastic features are identified. The associated oviduct and fimbria (A4) are histologically unremarkable. GROSS DESCRIPTION GROSS DESCRIPTION: Received in a container of formalin labeled with the patient's name, number, and "R ovary and tube" is a cystically enlarged ovary with an attached segment of fallopian tube. The ovary measures 5 x 3 x 5 cm and the attached segment of fallopian tube measures 2.5 cm long by 0.8 cm in diameter. Sectioning the ovary reveals a simple smooth walled cyst. The fallopian tube is unremarkable. Sections are submitted as follows: A1-A3) Ovary representativeA4) Fallopian tube medical representative The time at which the specimen was removed was not provided. The time at which the specimen was placed in formalin was not provided. (meb) Electronically signed by: Bryce Koch M.D. 05/05/2025 1:33:00 PM
== END 2025-05-04 12:36 | disposition home or self-care (01) ==
LOC: PAS 07:50
PROVIDERS: ATTEND Specialist
DX: N83.201 Unspecified ovarian cyst, right side (principal); K21.9 Gastro-esophageal reflux disease without esophagitis; F41.9 Anxiety disorder, unspecified; F32.A Depression, unspecified; G47.30 Sleep apnea, unspecified; I25.2 Old myocardial infarction; Z87.891 Personal history of nicotine dependence; Z79.891 Long term (current) use of opiate analgesic; Z79.899 Other long term (current) drug therapy; Z90.49 Acquired absence of other specified parts of digestive tract; Z98.51 Tubal ligation status; Z98.891 History of uterine scar from previous surgery; Z98.890 Other specified postprocedural states
CPT/HCPCS: 36415; 58661; 80053; 82948; 84702; 85025; 86885; 86900; 86901; J0131; J0665; J0694; J1100; J2003; J2250; J2405; J2704; J2710; J3010; J3490; J7120; J7121; J8501; Z7506; Z7508; Z7512; A4618; A7000